=== PATIENT | female | born 1960 | race Caucasian/White ===

== ENCOUNTER 2024-06-23 08:41 | Inpatient (IN) | payer BC ==
[2024-06-23 09:12] LABS: #Basophils 0.08 10x3/uL (0.0-0.2); %Basophils 0.7 % (0.0-1.0); %Lymphocytes 24.1 % (21.0-51.0); %Neutrophils 63.4 % (42.0-75.0); Hematocrit 39.2 % (36.0-47.0); Hemoglobin 13.2 g/dL (12.0-16.0); Mean Corpuscular HGB CONC 33.7 g/dL (32.0-36.0); Mean Corpuscular Hemoglobin 30.8 pg (27.0-31.0); Mean Corpuscular Volume 91.4 fL (78.0-98.0); Mean Platelet Volume 8.5 fL (7.4-10.4); Platelet Count 406 10x3/uL (130-400); RBC Distribution Width 11.7 % (11.5-14.5); Red Blood Cell (RBC) Count 4.29 mill/uL (4.20-5.40)
[2024-06-23] MEDS ORDERED: Acetaminophen 325 MG TAB ONE (09:16)
[2024-06-23 09:19] LABS: Alcohol Less than 10.0 mg/dL (Less than 10)
[2024-06-23 09:22] LABS: ALT (SGPT) 13 U/L (Less than 34); AST (SGOT) 24 U/L (11-34); Albumin 3.6 g/dL (3.1-4.5); Alkaline Phosphatase 69 U/L (40-110); Anion Gap 13 mmol/L (10-20); BUN (Urea Nitrogen) 10 mg/dL (9.8-20.1); Bilirubin, Total 0.4 mg/dL (0.3-1.2); Calc. Creatinine Clearance 0 mL/min (70-130); Calcium 9.7 mg/dL (7.8-10.44); Carbon Dioxide 28 mmol/L (23-31); Chloride 107 mmol/L (98-107); Estimated GFR 101; Globulin 4.4 g/dL (2.4-3.5); Glucose 103 mg/dL (80-115); Lipase 49 U/L (8-78); Potassium 3.7 mmol/L (3.5-5.1); Sodium 144 mmol/L (136-145)
[2024-06-23 09:28] LABS: Troponin I Less than 0.010 ng/mL (< 0.028)
[2024-06-23 09:44] LABS: INR-International Normal Ratio 0.9; Prothrombin Time 12.2 sec (12.0-14.7)
[2024-06-23 09:45] LABS: PTT 32.4 sec (22.9-36.1)
[2024-06-23 10:35] LABS: Bilirubin Negative (Negative); Blood, Urine Negative (Negative); CAUTI Indications for Culture Alt mental st,lethar; Clarity Clear (Clear); Glucose, Urine (Dipstick) Normal (Negative); Ketone, Urine Negative (Negative); Leukocyte 25 Leu/uL (Negative); Nitrite 2+ (Negative); Protein, Urine (Dipstick) Negative (Neg-Trace); RBC/HPF 0-3 HPF (0-3); Squamous Epithelial 0-3 HPF (0-3); Urobilinogen Normal mg/dL (Less than 2)
[2024-06-23 10:37] LABS: Bacteria/HPF 1+ HPF (None Seen)
[2024-06-23 10:38] LABS: Amphetamine Not Detected (NotDetected); Barbiturates Screen Not Detected (NotDetected); Benzodiazepine Screen Detected (NotDetected); Cocaine Metabolite Screen Not Detected (NotDetected); Methadone Not Detected (NotDetected); Methamphetamine Not Detected (NotDetected); Opiate Screen Not Detected (NotDetected); Oxycodone Screen Not Detected (NotDetected); Phencyclidine (PCP) Not Detected (NotDetected); THC/Cannabinoid Screen Not Detected (NotDetected); Tricyclic Screen Not Detected (NotDetected); Urine Culture Reflex No No
[2024-06-23] MEDS ORDERED: Iopamidol-370 76% 500 ML MDV (1 ML CHARGE) ONE (11:55)
[2024-06-23] MEDS ORDERED: Midodrine HCl 5 MG TAB PO PRN (12:38)
[2024-06-23] MEDS ORDERED: Acetaminophen 650 MG Suppository PR PRN (12:40)
[2024-06-23] MEDS ORDERED: Ondansetron ODT 4 MG TAB PO PRN (12:40)
[2024-06-23] MEDS ORDERED: Ondansetron PF 4 MG/2 ML Vial IVP PRN (12:40)
[2024-06-23 13:26] LABS: Phosphorus 2.8 mg/dL (2.5-4.5)
[2024-06-23 13:28] LABS: Magnesium 1.9 mg/dL (1.6-2.6)
[2024-06-23 14:17] VITALS: BMI 24.6
[2024-06-23] MEDS: Potassium Chloride 20 MEQ in Lactated Ringer's 1,000 ML IV SCH (15:27)
[2024-06-23] MEDS: Benzonatate 100 MG CAP PO PRN (17:40)
[2024-06-23] MEDS: Ipratropium/Albuterol 3 ML NEB NEB PRN (17:45)
[2024-06-23] MEDS: Acetaminophen 325 MG TAB PO PRN (20:54)
[2024-06-23] MEDS: Doxycycline 100 MG CAP PO SCH (20:54)
[2024-06-24 05:26] LABS: #Basophils 0.07 10x3/uL (0.0-0.2); %Basophils 0.6 % (0.0-1.0); %Eosinophils 2.7 % (0.0-10.0); %Lymphocytes 33.2 % (21.0-51.0); %Monocytes 4.8 % (0.0-10.0); %Neutrophils 55.9 % (42.0-75.0); Hematocrit 33.3 % (36.0-47.0); Hemoglobin 11.1 g/dL (12.0-16.0); Mean Corpuscular HGB CONC 33.3 g/dL (32.0-36.0); Mean Corpuscular Hemoglobin 30.9 pg (27.0-31.0); Mean Corpuscular Volume 92.8 fL (78.0-98.0); Mean Platelet Volume 8.6 fL (7.4-10.4); Platelet Count 354 10x3/uL (130-400); RBC Distribution Width 11.7 % (11.5-14.5); Red Blood Cell (RBC) Count 3.59 mill/uL (4.20-5.40)
[2024-06-24 06:11] LABS: Anion Gap 13 mmol/L (10-20); BUN (Urea Nitrogen) 7 mg/dL (9.8-20.1); Calc. Creatinine Clearance 118 mL/min (70-130); Calcium 8.8 mg/dL (7.8-10.44); Carbon Dioxide 26 mmol/L (23-31); Chloride 109 mmol/L (98-107); Estimated GFR 105; Glucose 109 mg/dL (80-115); Potassium 3.5 mmol/L (3.5-5.1); Sodium 144 mmol/L (136-145)
[2024-06-24] MEDS: Enoxaparin 30 MG (0.3 mL) SYRINGE SC SCH (09:52)
[2024-06-24] MEDS: Nitrofurantoin Monohyd/M-Cryst 100 MG CAP PO SCH ×2 (12:04→20:34)
[2024-06-24] MEDS: Pregabalin 75 MG CAP PO SCH (20:34)
[2024-06-25] MEDS: Finasteride 5 MG TAB PO SCH (08:27)
[2024-06-25] MEDS: Escitalopram Oxalate 10 mg Tablet PO SCH (08:27)
[2024-06-25] MEDS: Enoxaparin 40 MG (0.4 mL) SYRINGE SC SCH (08:27)
[2024-06-25 11:50] VITALS: BP 124/63; TEMP 98
== END 2024-06-25 12:58 | disposition home or self-care (01) | DRG 690 ==
LOC: ERS 08:41 → OBS 14:15 → OBSVTOIN 06-24 14:49
PROVIDERS: ADMIT Student in an Organized Health Care Education/Training Program; ATTEND Hospitalist
DX: N39.0 Urinary tract infection, site not specified (principal); I10 Essential (primary) hypertension; R73.03 Prediabetes; J01.00 Acute maxillary sinusitis, unspecified; Z88.0 Allergy status to penicillin; Z88.5 Allergy status to narcotic agent; Z91.040 Latex allergy status; Z90.49 Acquired absence of other specified parts of digestive tract; Z98.51 Tubal ligation status
CPT/HCPCS: 36415; 70450; 71260; 72125; 74177; 80048; 80053; 80306; 80307; 81001; 83690; 83735; 84100; 84484; 85025; 85610; 85730; 87077; 87086; 87186; 93005; 93306; 94640; 94760; 96360; 96372; G0378; J1650; J3480; J7120; J7620; Q9967